=== PATIENT | male | born 1970 | race Caucasian/White ===

== ENCOUNTER 2024-10-04 20:51 | Emergency (ER) | payer MEDICAID ==
[2024-10-04 21:45] LABS: BASOPHILS PERCENT AUTO 0.1 % (0.0-1.0); EOSINOPHILS PERCENT AUTO 0.1 % (1.0-3.0); HEMOGLOBIN 13.3 g/dL (14.0-18.0); LYMPHOCYTES PERCENT AUTO 13.6 % (20.5-50.1); MEAN CORPUSCULAR HEMOGLOBIN 36.3 pg (27.0-34.0); MEAN CORPUSCULAR HGB CONC 34.1 g/dL (33.0-35.0); MEAN CORPUSCULAR VOLUME 106.6 fL (80-100); MONOCYTES PERCENT AUTO 7.4 % (2-8); NEUTROPHILS PERCENT AUTO 78.8 % (42.2-75.2); PLATELET COUNT,PLT 371 10^3/uL (150-450); RED BLOOD CELL COUNT 3.66 10^6/uL (4.6-6.2); WHITE BLOOD CELL COUNT,WBC 12.8 10^3/uL (5.0-10.0)
[2024-10-04 22:09] LABS: A/G RATIO 1.2; ALBUMIN 3.9 g/dL (3.4-5.0); ANION GAP 18.6 mEq/L (7-13); BILIRUBIN TOTAL 0.2 mg/dL (0.2-1.0); BUN/CREATININE RATIO 10.9 (No establ ref range); CALCIUM 8.6 mg/dL (8.5-10.1); CREATININE 1.1 mg/dL (0.70-1.30); EST CRCL DRUG DOSING (CG) 79.83 mL/min; MAGNESIUM 1.6 mg/dL (1.8-2.4); POTASSIUM,K 3.6 mmol/L (3.5-5.1); PROTEIN TOTAL,TP 7.2 g/dL (6.4-8.2)
[2024-10-04 22:20] LABS: INR 0.9 (0.9-1.2); PROTHROMBIN TIME 9.1 SEC (9.0-12.0); PTT,PARTIAL THROMBOPLSTIN TIME 22.7 SEC (22.0-34.0)
== END 2024-10-04 22:14 ==
LOC: DL.ED 20:51
DX: I63.9 Cerebral infarction, unspecified (principal); F17.210 Nicotine dependence, cigarettes, uncomplicated
CPT/HCPCS: 36415; 80053; 80307; 82947; 83735; 84484; 85025; 85610; 85730; 93005; 93010; 99285